=== PATIENT | female | born 1975 | race Caucasian/White ===

== ENCOUNTER 2016-09-03 18:10 | Emergency (ER) ==
[2016-09-03 18:16] VITALS: BP 174/120; TEMP 97.5; BMI 25.9
--- NOTE | 2016-09-03 18:33 | ED.PDOC ---
General ED Provider: Dr. DEN LOONEY Chief Complaint: Wrist Pain/Injury Stated Complaint: wrist pain right Time Seen by Physician: 18:11 Mode of Arrival: Walk-In Information Source: Patient Exam Limitations: No limitations Primary Care Provider: ROSELINE SALAZAR Nursing and Triage Documentation Reviewed and Agree: Yes Musculoskeletal Complaint Exam - Hand/Wrist Complaint/Exam Location of Pain: Reports: Right, Hand Mechanism of Injury: Reports: No known trauma Onset/Duration: ganglion cyst right hand Symptoms Are: Still present Onset of Pain: Reports: Hours Initial Severity: Moderate Current Severity: Moderate Location: Reports: Discrete (see photo) Character: Reports: Aching Alleviating: Reports: Rest Aggravating: Reports: Movement Associated Signs and Symptoms: Reports: Swelling ( see ). Denies: Redness, Bruising, Fever, Weakness, Numbness, Tingling Related History: Reports: Similar episode Dominant Hand: Right Differential Diagnoses: Other (ganglion cyst) Review of Systems - Review Of Systems Constitutional: Reports: No symptoms Eyes: Reports: No symptoms Ears, Nose, Mouth, Throat: Reports: No symptoms Respiratory: Reports: No symptoms Cardiac: Reports: No symptoms GI: Reports: No symptoms : Reports: No symptoms Musculoskeletal: Reports: Other (right hand positive for cyst see photo) Skin: Reports: No symptoms Neurological: Reports: No symptoms Endocrine: Reports: No symptoms Hematologic/Lymphatic: Reports: No symptoms All Other Systems: Reviewed and Negative Past Medical History - Past Medical History Previously Healthy: Yes Endocrine: Reports: None Cardiovascular: Reports: Hypertension Respiratory: Reports: None Hematological: Reports: None Gastrointestinal: Reports: None Genitourinary: Reports: None Neuro/Psych: Reports: Bipolar Disorder Musculoskeletal: Reports: None Cancer: Reports: None Last Menstrual Period: N/A - Surgical History General Surgical History: Reports: None - Family History Family History: Reports: None - Social History Smoking Status: Current some day smoker Hx Substance Use: Yes (MORPHINE ADDICTION 4 YEARS AGO) Alcohol Screening: None - Immunizations Tetanus Shot up to Date: Yes Physical Exam - Physical Exam Appearance: Well-appearing, No pain distress, Well-nourished Eyes: IFRAH, EOMI, Conjunctiva clear ENT: Ears normal, Nose normal, Oropharynx normal Respiratory: Airway patent, Breath sounds clear, Breath sounds equal, Respirations nonlabored Cardiovascular: RRR, Pulses normal, No rub, No murmur GI/: Soft, Nontender, No masses, Bowel sounds normal, No Organomegaly Musculoskeletal: Normal strength (ganglion cyst right hand ) Skin: Warm, Dry, Normal color Neurological: Sensation intact, Motor intact, Reflexes intact, Cranial nerves intact, Alert, Oriented Psychiatric: Affect appropriate, Mood appropriate Critical Care Note - Critical Care Note Total Time (mins): 0 Course - Course Vital Signs: Temp Pulse Resp BP Pulse Ox 09/03/16 18:11 97.5 F L 116 H 20 174/120 H 98 Departure - Departure Time of Disposition: 18:33 (refuse aspiration, pt seen with staff at all times , denied traumatic ijury ) Disposition: HOME SELF-CARE Discharge Problem: Pain in wrist, Ganglion cyst Instructions: Ganglion Cysts (ED) Condition: Good Pt referred to PMD for follow-up: No Additional Instructions: Please call your Family Physician as soon as possible to schedule a follow-up appointment. Allergies/Adverse Reactions: Allergies acetaminophen [From Vicodin] Adverse Reaction (Mild, Verified 09/03/16 18:19) hydrocodone [From Vicodin] Adverse Reaction (Mild, Verified 09/03/16 18:19) doxycycline Adverse Reaction (Verified 09/03/16 18:19) lamotrigine [From Lamictal] Adverse Reaction (Verified 09/03/16 18:19) Sulfa (Sulfonamide Antibiotics) Adverse Reaction (Verified 09/03/16 18:19) Home Medications: Ambulatory Orders Amitriptyline HCl 100 mg PO DAILY 09/03/16 Diltiazem HCl [Diltiazem 24Hr ER] 1 tab PO DAILY 09/03/16 Nabumetone [Relafen] 750 mg PO BID 09/03/16
== END 2016-09-03 18:39 | disposition home or self-care (01) ==
LOC: ED 18:10
DX: M67.431 Ganglion, right wrist (principal); M25.531 Pain in right wrist; F17.210 Nicotine dependence, cigarettes, uncomplicated
CPT/HCPCS: 99282

== ENCOUNTER 2016-11-04 09:57 | Outpatient (CLI) ==
--- NOTE | 2016-11-04 10:30 | DI ---
EXAM: LEFT KNEE. HISTORY: Left knee pain and popping FINDINGS: Left knee four view. Articular cartilage width is normal. There is no fracture or joint effusion. Bone density and soft tissues are within normal limits. IMPRESSION: Within normal limits.
== END 2016-11-04 09:58 | disposition home or self-care (01) ==
LOC: RAD 09:57
PROVIDERS: ATTEND Physician Assistant Medical
DX: M25.562 Pain in left knee (principal)

== ENCOUNTER 2017-03-28 08:03 | Outpatient (CLI) | payer OTHER ==
[2017-01-09 08:58] VITALS: BMI 26.2
--- NOTE | 2017-03-28 09:59 | MAMMO ---
EXAM: Screening digital mammogram with tomosynthesis and CAD HISTORY: Screening mammogram. COMPARISON: Mammogram 07/14/2012 FINDINGS: Breast density demonstrates scattered fibroglandular densities. There is no abnormal calci fication. There is an asymmetric density seen in the left MLO mammogram in the inferior breast in th e middle third 5.1 cm from the nipple. No additional abnormalities identified. IMPRESSION: Asymmetric density in the left breast on MLO view as described above. Recommendations: Diagnostic left breast mammogram and potential ultrasound. BIRADS category0: Needs further evaluation.
== END 2017-03-28 08:04 | disposition home or self-care (01) ==
LOC: RAD 08:03
PROVIDERS: ATTEND Physician Assistant Medical
DX: Z12.31 Encounter for screening mammogram for malignant neoplasm of breast (principal)
CPT/HCPCS: 77067

== ENCOUNTER 2017-03-30 09:21 | Outpatient (CLI) ==
[2017-01-09 08:58] VITALS: BMI 26.2
--- NOTE | 2017-03-30 10:12 | MAMMO ---
EXAM: Digital left diagnostic mammogram HISTORY: Asymmetric nodular density in the left breast COMPARISON: Screening mammogram 03/28/2017 FINDINGS: Multiple spot compression views of the left breast were performed digitally and demonstrat e scattered fibroglandular breast density. There is no new abnormal nodule or calcification. The pre viously identified abnormal presses out on compression images and tomosynthesis. No new nodule is sara ntified. IMPRESSION: Asymmetric density likely represents summation artifact from overlapping parenchyma. No definitive nodule is identified. RECOMMENDATION: Return to annual screening mammogram BIRADS category 1: Normal
== END 2017-03-30 09:22 | disposition home or self-care (01) ==
LOC: RAD 09:21
PROVIDERS: ATTEND Physician Assistant Medical
DX: R92.8 Other abnormal and inconclusive findings on diagnostic imaging of breast (principal)

== ENCOUNTER 2017-05-31 09:27 | Outpatient (CLI) ==
[2017-01-09 08:58] VITALS: BMI 26.2
--- NOTE | 2017-05-31 11:09 | DI ---
Exam: Five x-rays of the lumbar spine. Comparison: CT abdomen pelvis performed 02/16/2014. Reason for exam: Back pain. FINDINGS: No acute fracture or listhesis. The vertebral body heights are relatively well maintained. There is mild dextro levoscoliosis of the lumbar spine. The lumbar lordotic curve is relatively we ll maintained. Degenerative disease is seen with facet hypertrophy and intervertebral body disc spac e height narrowing most notably at L4-5 and L5-S1. Impression: 1. No acute fracture or listhesis in the lumbar spine. 2. Multilevel degenerative disease most notably L4-L5 and L5-S1. If clinical concern exists for rad iculopathy or myelopathy, MRI may be performed for further characterization.
== END 2017-05-31 09:28 | disposition home or self-care (01) ==
LOC: RAD 09:27
PROVIDERS: ATTEND Physician Assistant Medical
DX: M54.5 Low back pain (principal)

== ENCOUNTER 2017-06-20 08:52 | Outpatient (CLI) | payer OTHER ==
[2017-01-09 08:58] VITALS: BMI 26.2
--- NOTE | 2017-06-20 13:15 | MRI ---
EXAM: Lumbar spine MRI without contrast. HISTORY: Lumbar degenerative disc disease. COMPARISON: Lumbar spine radiographs 05/31/2017 and chest radiographs 11/23/2015. TECHNIQUE: Multiplanar, multisequence MR images were acquired lumbar spine without contrast. FINDINGS: Conus medullaris ends at L1-2 and is normal signal intensity. The last normal rib-bearing vertebra is numbered T12. There are six non-rib bearing lumbar vertebra and these numbered L1-L6. T he lumbar vertebra normal in height. There is mild lower lumbar rotatory levoscoliosis centered at L 4-5 and there is 4 mm rightward translation of L6 with respect to L5. There is mild straightening us ual lumbar lordosis. 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 Intrinsic bone marrow signal is normal. There is desiccation of the lumbar intervertebral discs from L2-3 through L6, S1 and the re is minor L3-4, moderate L4-5 and mild L5-6 and L6, S1 disc space narrowing. At L4-5, there is ost eophytosis with mild to moderate degenerative endplate changes which are greatest right laterally whe re there are mild to moderate modic type 2 right anterolateral and right posterolateral endplate villagomez ges. At L5-6, there is mild endplate irregularity along the right posterolateral endplates with foca l right posterolateral modic type 2 endplate changes. There are small chronic Schmorl's nodes at L2, L4 and L6. The partially visualized liver, spleen and kidneys are unremarkable. L1-2: The intervertebral disc is normal. L2-3: There is a minor disc bulge and small central disc extrusion that extends above and below the disc level. L3-4: There is a minor disc bulge and small broad-based central left paracentral disc protrusion. T here is no central canal stenosis or foraminal stenosis. L4-5: There is a mild disc bulge that is asymmetric to the right with a small right posterolateral d isc protrusion that posteriorly displaces the right L5 nerve root. Mild bilateral facet arthropathy and ligamentum flavum hypertrophy is present. There is minor right neural foraminal stenosis. There is mild right neural foraminal stenosis. L5-6: There is a minor disc bulge and mild right and minor left facet arthropathy without foraminal stenosis. L6-S1: There is a mild left posterior disc osteophyte complex without central canal stenosis. IMPRESSION: 1. Mild lumbar degenerative spondylosis with chronic Schmorl's nodes at L2, L4 and L6. 2. Six non-rib bearing lumbar vertebra are present. 3. Small disc herniations L2-3, L3-4 and L4-5. At L4, there is posterior displacement of the right L5 nerve root.
== END 2017-06-20 08:53 | disposition home or self-care (01) ==
LOC: RAD 08:52
PROVIDERS: ATTEND Physician Assistant Medical
DX: M51.36 Other intervertebral disc degeneration, lumbar region (principal)

== ENCOUNTER 2017-06-20 14:20 | Emergency (ER) ==
[2017-06-20 14:28] VITALS: BP 130/85; TEMP 97.9; BMI 29.2
--- NOTE | 2017-06-20 16:42 | CT ---
Exam: CT abdomen pelvis without intravenous contrast. Comparison: 02/16/2014. Reason for exam: Constipation. FINDINGS: Image interpretation is limited by the lack of intravenous contrast administration. No pleural effusion, or focal consolidation in the partially imaged lung bases. There is a moderately-sized hiatal hernia. The gallbladder has been removed. Indeterminate density nodule in the left adrenal gland measuring 18 HU measures 2.5 cm which is incre ased when compared to the previous exam. The spleen, pancreas, and right adrenal gland appear grossly unremarkable. No hydronephrosis, hydroureter, or nephrolithiasis in either kidney. The bladder appears grossly unremarkable and is dilated with urine. No focal small bowel dilatation or transition point. The appendix is unremarkable. There is a moderate amount of stool seen in the rectosigmoid. Impression: 1. Indeterminate density left adrenal nodule measuring 2.5 cm and 18 HU. Recommend MRI or CT adrenal gland protocol for further characterization. 2. Moderately sized hiatal hernia. 3. Moderate amount of stool seen within the rectosigmoid.
--- NOTE | 2017-06-20 16:49 | ED.PDOC ---
General ED Provider: Dr. DEN LOONEY Chief Complaint: Constipation Stated Complaint: constipation Time Seen by Physician: 14:20 Mode of Arrival: Walk-In Information Source: Patient Exam Limitations: No limitations Primary Care Provider: PATRIC MORALES Nursing and Triage Documentation Reviewed and Agree: Yes Reviewed sepsis parameters & appropriate labs ordered?: Yes System Inflammatory Response Syndrome: Not Applicable Sepsis Protocol: For patient's 13 years and over: Temp is 96.8 and below OR 101 and greater Pulse >90 BPM Resp >20/minute Acutely Altered Mental Status Are patient's symptoms suggestive of a new infection, such as: -Pneumonia -Skin, Soft Tissue -Endocarditis -UTI -Bone, Joint Infection -Implantable Device -Acute Abdominal Infection -Wound Infection -Meningitis -Blood Stream Catheter Infection -Unknown System Inflammatory Response Syndrome: Not Applicable GI Complaint Exam - Abdominal Pain Complaint/Exam Onset: Gradual Duration: 3day Symptoms Are: Still present Timing: Constant Initial Severity: Mild Current Severity: Mild Location of Pain: Discrete Character: Reports: Dull Aggravating: Reports: None Alleviating: Reports: None Associated Signs and Symptoms: Reports: Constipation. Denies: Diaphoresis, Fever, Cough, Chest pain, Dizziness, Back pain, Blood in stool, Dysuria, Urinary frequency, Decreased urine output, Decreased appetite, Vaginal bleeding , Vaginal discharge, Nausea, Vomiting, Diarrhea, Sore throat, Decreased activity Related History: Reports: Similar episode AAA Risk Factors: Reports: None Cardiac Risk Factors: Reports: Hypertension Ectopic Risk Factors: Reports: None Ovarian Torsion Risk Factors: Reports: None Surgical Obstruction Risk Factors: Reports: None Related Surgical History: Reports: None Patient Rh Status: Unknown Abdominal Findings: Present: None Differential Diagnoses: Constipation Review of Systems - Review Of Systems Constitutional: Reports: No symptoms Eyes: Reports: No symptoms Ears, Nose, Mouth, Throat: Reports: No symptoms Respiratory: Reports: No symptoms Cardiac: Reports: No symptoms GI: Reports: Constipated : Reports: No symptoms Musculoskeletal: Reports: No symptoms Skin: Reports: No symptoms Neurological: Reports: No symptoms Endocrine: Reports: No symptoms Hematologic/Lymphatic: Reports: No symptoms All Other Systems: Reviewed and Negative Past Medical History - Past Medical History Previously Healthy: Yes Endocrine: Reports: None Cardiovascular: Reports: Hypertension Respiratory: Reports: None Hematological: Reports: None Gastrointestinal: Reports: None Genitourinary: Reports: None Neuro/Psych: Reports: Bipolar Disorder Musculoskeletal: Reports: None Cancer: Reports: None Last Menstrual Period: NONE - Surgical History General Surgical History: Reports: None - Family History Family History: Reports: None - Social History Smoking Status: Former smoker Hx Substance Use: Yes (MORPHINE ADDICTION 7 YEARS AGO) Alcohol Screening: None Physical Exam - Physical Exam Appearance: Well-appearing, No pain distress, Well-nourished Eyes: IFRAH, EOMI, Conjunctiva clear ENT: Ears normal, Nose normal, Oropharynx normal Respiratory: Airway patent, Breath sounds clear, Breath sounds equal, Respirations nonlabored Cardiovascular: RRR, Pulses normal, No rub, No murmur GI/: Soft, Nontender, No masses, Bowel sounds normal, No Organomegaly Musculoskeletal: Normal strength, ROM intact, No edema, No calf tenderness Skin: Warm, Dry, Normal color Neurological: Sensation intact, Motor intact, Reflexes intact, Cranial nerves intact, Alert, Oriented Psychiatric: Affect appropriate, Mood appropriate Interpretation - Radiology Interpretation Radiology Results: Positive (constipation and adrenal nodule) Critical Care Note - Critical Care Note Total Time (mins): 0 Course - Course Orders, Labs, Meds: Orders Category Date Time Status CT ABDOMEN/PELVIS WO CONTRAST Stat RADS 06/20/17 15:47 Completed Vital Signs: Temp Pulse Resp BP Pulse Ox 06/20/17 14:20 97.9 F 85 18 130/85 94 L Departure - Departure Time of Disposition: 16:49 Disposition: HOME SELF-CARE Discharge Problem: Constipation Adrenal cortical adenoma Qualifiers: Laterality: left Qualified Code(s): D35.02 - Benign neoplasm of left adrenal gland Instructions: Constipation (ED) Condition: Good Pt referred to PMD for follow-up: Yes IPMP verified?: No Additional Instructions: Please call your Family Physician as soon as possible to schedule a follow-up appointment.adrenal nodule noted you must discuss need for mri with your MD Allergies/Adverse Reactions: Allergies acetaminophen [From Vicodin] Adverse Reaction (Mild, Verified 06/20/17 14:28) hydrocodone [From Vicodin] Adverse Reaction (Mild, Verified 06/20/17 14:28) doxycycline Adverse Reaction (Verified 06/20/17 14:28) lamotrigine [From Lamictal] Adverse Reaction (Verified 06/20/17 14:28) Sulfa (Sulfonamide Antibiotics) Adverse Reaction (Verified 06/20/17 14:28) steroids Adverse Reaction (Uncoded 01/09/17 08:58) Home Medications: Ambulatory Orders Amitriptyline HCl 100 mg PO DAILY 09/03/16 Diltiazem HCl [Diltiazem 24Hr ER] 1 tab PO DAILY 09/03/16 Nabumetone [Relafen] 750 mg PO BID 09/03/16 Atorvastatin Calcium [Lipitor] 10 mg PO DAILY 01/09/17 Furosemide [Lasix] 20 mg PO DAILY 01/09/17 Hydrochlorothiazide 25 mg PO DAILY 01/09/17 Lubiprostone [Amitiza] 24 mcg PO DAILY 01/09/17 Albuterol Sulfate [Proair Hfa] 2 puff IH PRN PRN 06/20/17 Bupropion HCl [Wellbutrin Sr] 150 mg PO BID 06/20/17 Potassium Chloride [K-Dur] 20 meq PO DAILY 06/20/17
== END 2017-06-20 17:36 | disposition home or self-care (01) ==
LOC: ED 14:20
DX: K59.00 Constipation, unspecified (principal); D35.02 Benign neoplasm of left adrenal gland
CPT/HCPCS: 99282

== ENCOUNTER 2017-07-07 09:01 | Outpatient (CLI) | payer OTHER ==
--- NOTE | 2017-07-07 11:09 | MRI ---
EXAM: MRI abdomen without and with contrast HISTORY: Left adrenal adenoma TECHNIQUE: Multiplanar, multisequence without and following the administration of intravenous Omnisc an, 15 mL using an adrenal nodule protocol COMPARISON: CT abdomen from 06/20/2017 FINDINGS: The heart size is normal. A moderate hiatus hernia is noted. No pericardial or pleural e ffusions are detected. The lung bases have normal signal. There is mild diffuse loss of signal on the opposed phase images as compared to the in-phase images. The gallbladder is surgically absent. There is no biliary dilatation. No suspicious hepatic lesion s are evident. The portal hepatic veins are patent. The pancreas has normal bright T1 signal and no rmal enhancement. The spleen has normal size and signal. The right adrenal gland has normal signal morphology. A left adrenal nodule measuring 2.4 x 2.2 cm h as significant loss of signal on the opposed phase images as compared in-phase images and is compatib le with a benign adenoma. A tiny simple cyst is detected at the interpolar region of the left kidney. A few tiny simple cysts are noted in the right kidney. The ureters have normal caliber. No suspicious renal lesions are evid ent. The intestines have normal caliber. The abdominal aorta has normal caliber and flow signal. No lymp hadenopathy or ascites are appreciated. The bone marrow signal intensity is normal. IMPRESSION: 1. Benign left adrenal adenoma. 2. Mild diffuse hepatic steatosis. 3. Simple bilateral renal cysts. 4. Moderate hiatus hernia.
== END 2017-07-07 09:02 | disposition home or self-care (01) ==
LOC: RAD 09:01
PROVIDERS: ATTEND Physician Assistant Medical
DX: D35.02 Benign neoplasm of left adrenal gland (principal)

== ENCOUNTER 2017-07-26 22:34 | Emergency (ER) | payer OTHER ==
[2017-07-26 22:44] VITALS: BP 119/83; TEMP 98.2; BMI 28.8
[2017-07-26] MEDS ORDERED: MOTRIN PO STA (23:03)
--- NOTE | 2017-07-26 23:27 | ED.PDOC ---
General ED Provider: Dr. WEN RODRIGUES Chief Complaint: Foot Pain/Injury Stated Complaint: Patient is a 41 year old who states that her dog ran up behind patient, flipped her, fell down on right foot/ankle. [place] it pop. States he is now Unable to bear weight. She rates pain as 8/10. Time Seen by Physician: 23:25 Mode of Arrival: Wheelchair Information Source: Patient Exam Limitations: No limitations Primary Care Provider: PATRIC MORALES Nursing and Triage Documentation Reviewed and Agree: Yes Reviewed sepsis parameters & appropriate labs ordered?: Yes System Inflammatory Response Syndrome: Not Applicable Sepsis Protocol: For patient's 13 years and over: Temp is 96.8 and below OR 101 and greater Pulse >90 BPM Resp >20/minute Acutely Altered Mental Status Are patient's symptoms suggestive of a new infection, such as: -Pneumonia -Skin, Soft Tissue -Endocarditis -UTI -Bone, Joint Infection -Implantable Device -Acute Abdominal Infection -Wound Infection -Meningitis -Blood Stream Catheter Infection -Unknown System Inflammatory Response Syndrome: Not Applicable Musculoskeletal Complaint Exam - Ankle/Foot Complaint/Exam Location of Injury: Reports: Right, Ankle, Foot Mechanism of Injury: Reports: Trauma (twisting and tripping from a dog ) Onset/Duration: 3 hours Symptoms Are: Reports: Still present Onset of Pain: Reports: Immediate Initial Severity: Severe Current Severity: Moderate Character: Reports: Aching, Throbbing, Stiffness Aggravating: Reports: Movement, Weight bearing, Prolonged standing Able to Bear Weight: No Associated Signs and Symptoms: Reports: Swelling Gout Risk Factors: Reports: None Related Surgical History: Reports: None Lower Extremity Findings: Present: Swelling, Tenderness, Limited range of motion Achilles Tendon Abnormality: No Tenderness: Present: Lateral malleolus Limited Range of Motion: Present: Inversion, Eversion, Dorsiflexion, Plantarflexion Ankle/Foot Picture: 1 - swelling and Tenderness Differential Diagnosis: Closed Fracture, Sprain, Strain Review of Systems - Review Of Systems Constitutional: Reports: No symptoms Eyes: Reports: No symptoms Ears, Nose, Mouth, Throat: Reports: No symptoms Respiratory: Reports: No symptoms Cardiac: Reports: No symptoms GI: Reports: No symptoms : Reports: No symptoms Musculoskeletal: Reports: Joint pain, Joint swelling Skin: Reports: No symptoms Neurological: Reports: No symptoms Endocrine: Reports: No symptoms Hematologic/Lymphatic: Reports: No symptoms All Other Systems: Reviewed and Negative Past Medical History - Past Medical History Previously Healthy: Yes Endocrine: Reports: None Cardiovascular: Reports: Hypertension Respiratory: Reports: None Hematological: Reports: None Gastrointestinal: Reports: None Genitourinary: Reports: None Neuro/Psych: Reports: Bipolar Disorder Musculoskeletal: Reports: None Cancer: Reports: None Last Menstrual Period: hysterectomy at 23 y/o - Surgical History General Surgical History: Reports: None - Family History Family History: Reports: None - Social History Smoking Status: Current every day smoker, Heavy tobacco smoker 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) Alcohol Screening: None - Immunizations Tetanus Shot up to Date: Yes Physical Exam - Physical Exam Appearance: Ill-appearing Ill-appearing: Mild Pain Distress: Moderate Respiratory: Airway patent, Breath sounds clear, Breath sounds equal, Respirations nonlabored Cardiovascular: RRR, Pulses normal, No rub, No murmur GI/: Soft, Nontender, No masses, Bowel sounds normal, No Organomegaly Musculoskeletal: Normal strength, No calf tenderness, Limited ROM, Edema Skin: Warm, Dry, Normal color Neurological: Alert, Oriented Psychiatric: Anxious Critical Care Note - Critical Care Note Total Time (mins): 0 Course - Course Orders, Labs, Meds: Orders Category Date Time Status ZAC [ED ZAC WRAP] .ONCE EMERGENCY 07/27/17 00:18 Active ED CRUTCHES .ONCE EMERGENCY 07/27/17 00:18 Active Ibuprofen [Motrin] MEDS 07/26/17 23:03 Discontinued 800 mg PO ONCE STA ANKLE, RIGHT MIN 3 VIEWS Stat RADS 07/26/17 23:03 Taken FOOT, RIGHT 3 VIEWS Stat RADS 07/26/17 23:03 Taken Medications Discontinued Medications Generic Name Dose Route Start Last Admin Trade Name Brettq PRN Reason Stop Dose Admin Ibuprofen 800 mg 07/26/17 23:03 07/26/17 23:25 Motrin PO 07/26/17 23:04 800 mg ONCE STA Administration Vital Signs: Temp Pulse Resp BP Pulse Ox 07/26/17 22:35 98.2 F 89 20 119/83 98 Departure - Departure Time of Disposition: 00:33 Disposition: HOME SELF-CARE Discharge Problem: Ankle sprain Qualifiers: Encounter type: initial encounter Involved ligament of ankle: calcaneofibular ligament Laterality: right Qualified Code(s): S93.411A - Sprain of calcaneofibular ligament of right ankle, initial encounter Instructions: Ankle Sprain (ED) Condition: Good Pt referred to PMD for follow-up: Yes IPMP verified?: No Additional Instructions: Keep foot elevated Follow up with PCP in 3-5 days Use zac and Crutches as needed Allergies/Adverse Reactions: Allergies acetaminophen [From Vicodin] Adverse Reaction (Mild, Verified 06/20/17 14:28) hydrocodone [From Vicodin] Adverse Reaction (Mild, Verified 06/20/17 14:28) bupropion [From Wellbutrin] Adverse Reaction (Verified 07/26/17 22:45) Hives hives/hallucinations doxycycline Adverse Reaction (Verified 06/20/17 14:28) lamotrigine [From Lamictal] Adverse Reaction (Verified 06/20/17 14:28) Sulfa (Sulfonamide Antibiotics) Adverse Reaction (Verified 07/26/17 22:45) Hives steroids Adverse Reaction (Uncoded 07/26/17 22:45) causes extreme rage behavior Home Medications: Ambulatory Orders Amitriptyline HCl 100 mg PO DAILY 09/03/16 Diltiazem HCl [Diltiazem 24Hr ER] 1 tab PO DAILY 09/03/16 Nabumetone [Relafen] 750 mg PO BID 09/03/16 Atorvastatin Calcium [Lipitor] 10 mg PO DAILY 01/09/17 Furosemide [Lasix] 20 mg PO DAILY 01/09/17 Hydrochlorothiazide 25 mg PO DAILY 01/09/17 Lubiprostone [Amitiza] 24 mcg PO DAILY 01/09/17 Albuterol Sulfate [Proair Hfa] 2 puff IH PRN PRN 06/20/17 Bupropion HCl [Wellbutrin Sr] 150 mg PO BID 06/20/17 Potassium Chloride [K-Dur] 20 meq PO DAILY 06/20/17 Disposition Discussed With: Patient
--- NOTE | 2017-07-27 07:34 | DI ---
EXAM: RIGHT ANKLE THREE VIEWS HISTORY: Twisting injury, swelling FINDINGS: Bone and joint structures appear normal. No fracture or joint dislocation. There is no joint effusion. Bone density is unremarkable. IMPRESSION: Bone and joint structures are within normal limits.
--- NOTE | 2017-07-27 07:35 | DI ---
Exam: Three x-rays of the right foot. Comparison: 09/05/2015. Reason for exam: Injury. FINDINGS: No acute fracture or malalignment. The joint spaces are well maintained. No unexplained calcific soft tissue density or radiopaque retained foreign body. Impression: No acute fracture or malalignment is seen in the right foot.
== END 2017-07-27 00:34 | disposition home or self-care (01) ==
LOC: ED 22:34
DX: S93.411A Sprain of calcaneofibular ligament of right ankle, initial encounter (principal); W54.1XXA Struck by dog, initial encounter; W19.XXXA Unspecified fall, initial encounter; F17.210 Nicotine dependence, cigarettes, uncomplicated
CPT/HCPCS: 99282

== ENCOUNTER 2018-05-24 12:39 | Outpatient (CLI) | payer OTHER ==
--- NOTE | 2018-05-24 17:01 | MRI ---
EXAM: MRI of the left knee without contrast COMPARISON: Left knee radiographs 11/04/2016. HISTORY: Left knee pain. Twisting injury. TECHNIQUE: Multiplanar noncontrast MR images of the left knee were acquired using a 1.2 [place]celia magnet . FINDINGS: There is a tear with horizontal cleavage component involving the free edge of the medial m eniscus from the body through the posterior horn/root with extension of the tear to the peripheral th ird of the meniscus. Flap component of the tear along the inferior articular surface of the body/pos terior junction with peripheral undersurface flap at that level. The lateral meniscus is intact. Inversion recovery hyperintense signal throughout the substance of the anterior cruciate ligament tho ugh intact fibers are identified suggesting sequela of mucoid degeneration versus a sprain. The post erior cruciate ligament is intact. The medial collateral ligament, lateral collateral ligament compl ex and posterolateral corner ligaments are intact. Mild patellar/quadriceps tendinosis. Minimal lat eral tilt of the patella within the trochlear groove without significant subluxation. Subcutaneous e kushal anteriorly. There is moderate thinning and irregularity the cartilage along the median ridge and adjacent portion of the medial lateral facet of the patella. Mild to moderate thinning of the cartilage medial jonny rtment. No evidence of an acute fracture or osteomyelitis. No focal marrow lesion. Small joint eff usion which is nonspecific. Slit-like popliteal cyst. No definite osteochondral body. IMPRESSION: 1. Complex tear of the medial meniscus as described. 2. Medial and patellofemoral compartment osteoarthrosis. Small joint effusion with a slit-like popl iteal cyst. 3. Mucoid degeneration versus sprain of the anterior cruciate ligament intact fibers identified. 4. Mild patellar/quadriceps tendinosis with minimal lateral tilt of the patella within the trochlear groove.
== END 2018-05-24 12:40 | disposition home or self-care (01) ==
LOC: RAD 12:39
PROVIDERS: ATTEND Physician Assistant
DX: M25.562 Pain in left knee (principal)

== ENCOUNTER 2018-06-13 13:00 | Outpatient (RCR) ==
--- NOTE | 2018-06-07 13:13 | RS.OPPTEV2 ---
Date of Note: 06/06/18 Visit #: 1 Number of visits approved by Insurance: NA Date of Evaluation: 06/06/18 Payer Source: MEDICARE Treatment Diagnosis: Left knee pain History of Condition/Mechanism of Injury:: Ms. Wilde reports she slipped and fell in the mud in March 2018 and hurt her left knee. States she immediately felt burning in the knee. She continued to having popping and locking of the knee and sought medical intervention. Prior Level of Function.....Patient was independent with: ADL's, Self Care, Caregiving, Ambulation/Mobility, Community Integration/Access Level of Function: Patient is very active. 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 Current Subjective/complaints:: Ms. Wilde states she walked to therapy today from her home, which is approximately 6 miles. Reports left knee pain with walking. States the knee does swell. The knee locks up at times. States the other day she was getting up from a kneeling position and it popped "like a firecracker". She has been icing the knee and elevating the LE. She has a few steps onto her porch, which she has to take one at a time. Reports tingling frequently in her LE's, which has been present since before her knee injury. She will be seeing a Neurologist soon about this. States most of her knee pain is on the medial side of the knee joint. She has not been wearing a knee support. Treatment Side (optional): Left Medical History Medical History: Hypertension, Arthritis Surgical History: Cholecystectomy, Hysterectomy Surgical History Comments:: Low back surgery Diagnostic Testing/Imaging:: MRI of left knee w/o contrast on 05/24/18. Impression: Complex tear of the medial meniscus. Medial and patellofemoral compartment osteoarthrosis. Small joint effusion with a slit-like popliteal cyst. Mucoid degereration versus sprain of the ACL intact fibers identified. Mild patellar/quadriceps tendinosis with minimal lateral tilt of the patella within the trochlear groove. Hx Home Medications: Diltiazem, Metoprolol, Atorvastatin, Latuda,HCTZ, Gabapentin, Trazadone, Furosemide, Nicotine patch Patient's Goals: Her goal is to get relief of left knee pain. Pain Assessment - Pain Description Pain Location: Left knee, mostly along the medial joint line. Current Pain Intensity: 5/10 Worst Pain Intensity: not quantified Functional Outcome Measure LE Functional Scale: 39 (39/80=51.25% impairment) - G Codes & Severity Modifier G Codes & Modifier: NA Source of G Code score: NA Observation - Observation Inspection: Left knee presents with no bruising or redness. Also demonstrates no remarkable swelling compared to the right knee. Comments: Bilateral pes planus, slight genu valgus on the right LE. Girth Measurement Lower: Superior patella: Left 41 cm, Right 40.5 cm. Inferior patella: left 36 cm, right 35 cm Gait - Gait Pattern Gait Comments: Patient ambulates without an assistive device with slight decreased stance on the left LE. Demonstrates decreased terminal knee extension at heel stirke on the left LE. - Left Knee ROM Left Knee Extension: full extension Left Knee Flexion: 125 (degrees AROM) Knee ROM Limitations: Soft Tissue Tightness, Pain - Right Knee ROM Right Knee Extension: full extension Right Knee Flexion: 130 (degrees AROM) - Left Knee Strength Left Knee Extension: 4+ Good + Left Knee Flexion: 4+ Good + Comments: Patient reports mild discomfort with MMT of left quads. Left hip strength 5/5. - Right Knee Strength Right Knee Extension: 5 Normal Right Knee Flexion: 5 Normal Comments: Right hip strength 5/5. - Special Tests Knee Anterior Drawer Test: Negative Left, Negative Right Knee Posterior Drawer Test: Negative Left, Negative Right Knee Valgus Stress Test: Negative Right, Positive Left (due to reports of pain) Knee Varus Stress Test: Negative Left, Negative Right Patellar Compression Test: Negative Right, Positive Left Comments: Both knees demonstrate consistent Palpation Comments:: Patient reports moderate tenderness along the medial joint line of the left knee, as well as at the patellar and quad tendons. Sensation - Sensation Comments: Reports diffuse numbness in bilateral LE's. Sensation throughout the left knee joint is intact. Additional Comments: Additional Comments: Bilateral SLR 30-35 degrees. Demonstrates left LE appear shorter in supine. - Treatment Modality: Ultrasound Parameters/Method Applied: X 10 mins total: 7 mins continuous @ 1.5 w/cm2, then 3 mins pulsed @ 1.0 w/cm2 with focus on medial joint line, as well as patella and quad tendon. Patient Position: Supine Interventions - Exercise/Activities/Manual Therapy Exercises/Activities: Patient instructed in HEP of quad sets, SLR's, and SAQ's. Advised to perform these exercises in a pain-free and pop-free range. Recommend she continue to ice the knee and elevate the leg, especially after prolonged walking. Total minutes of Exercise: X 6 mins Manual Therapy: [facility] HOME EXERCISE PROGRAM: QS, SLR, SAQ - Charges Timed Code Treatment Minutes: 16 mins Total Treatment Time: 48 mins Procedures billed for this date of service:: ANDREWS Bowen, US EVALUATION COMPLEXITY LEVEL EVALUATION COMPLEXITY LEVEL: HISTORY: Medium (Hx back surgery, ), EXAM OF BODY SYSTEMS: Low, CLINICAL PRESENTATION: Medium (Sometimes has to walk to appointments, keeping knee aggravated), CLINICAL DECISION MAKING: Low Assessment Assessment: Ms. Wilde presents to therapy with a diagnosis of Complex tear of medial meniscus and primary osteoarthritis of the left knee. She reports pain with ROM and ambulation. She describes tenderness along the medial joint line and at the quad and patella tendon. Also exhibits slight decreased AROM compared to the right knee. She will benefit from modalities to reduce inflammation and exercises to help her get relief of knee pain. Patient Education: Education of diagnosis, Body/Joint mechanics, Home Exercise Program, Education of Plan of Care Rehab Potential: Good Short Term Goals Goal #1: Pt independent in initial HEP. Goal to be met by: 06/20/18 Goal #2: Tenderness of left knee decreased to minimal. Goal to be met by: 06/20/18 Goal #3: Left quad strength 5/5. Goal to be met by: 06/21/18 [facility] Goals Goal #1: Pt knows HEP and to continue ex's to maintain functional level at D/c. Goal to be met by: 07/12/18 Goal #2: Score on LE scale improved to 59/80. Goal to be met by: 07/12/18 Goal #3: Pt able to ambulate community distances with minimal right knee pain. Goal to be met by: 07/12/18 Goal #4: Pt able to manage stairs with minimal difficulty or knee pain. Goal to be met by: 07/12/18 Plan - Treatment to be Provided Procedures: Therapeutic Exercises, Therapeutic Activity, Gait Training, Patient Education Modalities: Electrical Stimulation, Ultrasound/Phonophoresis, Cryotherapy, Hot Packs - Treatment Plan Frequency: 2-3 X week Duration: 4 weeks Dates of Insurance Law Specialist Goals: 07/12/18 Expiration date of current Insurance Approval:: NA - Treatment Code (1) Knee pain Code(s): M25.569 - PAIN IN UNSPECIFIED KNEE Qualifiers: Chronicity: acute Laterality: left Qualified Code(s): M25.562 - Pain in left knee (2) Complex tear of medial meniscus of left knee as current injury Code(s): S83.232A - COMPLEX TEAR OF MEDIAL MENSC, CURRENT INJURY, L KNEE, INIT Qualifiers: Encounter type: subsequent encounter Qualified Code(s): S83.232D - Complex tear of medial meniscus, current injury, left knee, subsequent encounter
--- NOTE | 2018-06-13 15:42 | RS.OPPTDN ---
Subjective Date of Note: 06/13/18 Visit #: 2 Number of visits approved by Insurance: [id number] Date of Evaluation: 06/06/18 Payer Source: MEDICARE Treatment Diagnosis: Left knee pain Current Subjective/complaints:: Patient says she is trying to get transit set up so that she can ride it to therapy and errands instead of walking to avoid pain at the L knee. She reports pain is mostly to the medial aspect. States she remains active however, mowing and doing all household tasks. - Treatment Modality: Ultrasound Parameters/Method Applied: continuous @ 1.5 w/cm2 x 8 mins, then 4 mins pulsed @ 20% 0.6 w/cm2 along the L medial knee joint. Patient Position: Supine - Heat/Cryotherapy Treatment: Hot Pack (12 mins surrounding the L knee in supine) Interventions - Exercise/Activities/Manual Therapy Exercises/Activities: Patient begins with receiving passive heel cord and hamstring stretching to the L LE. She performs: QS, heel slides, hip abd, assisted SLR, ham curls with green tband, DF with green tband, and ball squeezes for isometric hip add. All x 10 reps. Began patient education on diagnosis, joint mechanics, explaination of above exercises, and encouraged use of ice. Total minutes of Exercise: 19 Manual Therapy: NA HOME EXERCISE PROGRAM: QS, SLR, SAQ - Charges Timed Code Treatment Minutes: 31 Total Treatment Time: 43 Procedures billed for this date of service:: hp, u/s, ex Assessment: Patient presents to dept with copper sleeve to the L knee. She is unsure if it is effective, but feels treatment has been helping. She is very active out of necessity and is setting up transportation plans so that she will not have to walk to therapy and errands around town. She has tenderness to the medial aspect of the L knee, but appears to jerad all therex well. Patient Education: Education of diagnosis, Body/Joint mechanics, Home Exercise Program, Education of Plan of Care Patient demonstrates compliance with HEP?: Yes Short Term Goals Goal #1: Pt independent in initial HEP. Goal to be met by: 06/20/18 Progress towards Goal:: Progressing Goal #2: Tenderness of left knee decreased to minimal. Goal to be met by: 06/20/18 Goal #3: Left quad strength 5/5. Goal to be met by: 06/21/18 Mcc Goals Goal #1: Pt knows HEP and to continue ex's to maintain functional level at D/c. Goal to be met by: 07/12/18 Goal #2: Score on LE scale improved to 59/80. Goal to be met by: 07/12/18 Goal #3: Pt able to ambulate community distances with minimal right knee pain. Goal to be met by: 07/12/18 Goal #4: Pt able to manage stairs with minimal difficulty or knee pain. Goal to be met by: 07/12/18 Plan Dates of Transportation Engineering Technician Goals: 07/12/18 Expiration date of current Insurance Approval:: 07/12/18 PLAN: Patient to continue with modalities and therex to the L knee to reduce pain and improve swelling/function.
--- NOTE | 2018-06-16 13:02 | RS.CXNS ---
Date of scheduled appointment: 06/16/18 Type: Cancel Reason for Cancel/NS: transportation issues
== END 2018-07-04 23:59 ==
PROVIDERS: ATTEND Orthopaedic Surgery
DX: S83.232D Complex tear of medial meniscus, current injury, left knee, subsequent encounter (principal); M17.12 Unilateral primary osteoarthritis, left knee